=== PATIENT | male | born 1990 | race Caucasian/White ===

== ENCOUNTER 2019-07-15 11:49 | Emergency (ER) | payer BC, OTHER ==
[2019-07-15 11:58] VITALS: BMI 33.5
--- NOTE | 2019-07-15 12:13 | PDOC ---
History of Present Illness - General History Source: Patient Exam Limitations: No Limitations - History of Present Illness Initial Comments: 07/15/19 12:13 Luis Armando Ruvalcaba is a 28M with PMH meningitis, asthma, small bladder, presenting with constipation, urinary retention, and testicular pain. Has had constipation for the last 4 days, tried taking apple cider vinegar, milk of magnesia, has a BM today in ED waiting room and noticed bloody stools when wiping. Today also had testicular pain and suprapubic pain associated with urinary retention for 3 hours [employer], says he was diagnosed with a small bladder by urologist some years ago, normally goes to urinate hourly, not being able to urinate for a few hours is abnormal and causing some pain and nausea. Also has some lower back pain, has history of L4-L5 pinched nerve per neurologist but only has back pain a few times a year and goes away with Advil, denies ever having urinary retention or leg weakness/numbness/tingling with this. Denies fever/chills, headache, chest pain, SOB, dizziness. Denies alcohol/tobacco/drug use. Denies any sexual activity in the last year, denies risk of STD, denies discharge from penis. No recent exercise or strenuous physical activity. <Hung Benitez - Last Filed: 07/15/19 19:31> <Isela Cleveland - Last Filed: 07/16/19 11:58> - General Chief Complaint: Constipation Stated Complaint: CONSTIPATION Time Seen by Provider: 07/15/19 12:12 Past History - Past Medical History Asthma: Yes COPD: No Disorders: Yes (hineman syndrome) Hypercholesterolemia: Yes - Psycho Social/Smoking Cessation Hx Smoking Status: No Smoking History: Never smoked Number of Cigarettes Smoked Daily: 0 <Hung Benitez - Last Filed: 07/15/19 19:31> <Isela Cleveland - Last Filed: 07/16/19 11:58> - Past Medical History Allergies/Adverse Reactions: Allergies Allergy/AdvReac Type Severity Reaction Status Date / Time fesoterodine fumarate Allergy Intermediate Swelling Verified 07/15/19 11:58 [From [facility]] Home Medications: Ambulatory Orders Fluticasone Prop 0.05% Nasal [Flonase -] 2 spray NS DAILY #1 spray.pump Review of Systems - Review of Systems Able to Perform ROS?: Yes Constitutional: No: Symptoms Reported HEENTM: No: Symptoms Reported Respiratory: No: Symptoms reported Cardiac (ROS): No: Symptoms Reported ABD/GI: Yes: Blood Streaked Bowels, Constipated, Nausea. No: Vomiting : Yes: Testicular Pain. No: Burning, Dysuria, Discharge, Frequency, Flank Pain, Hematuria Musculoskeletal: Yes: Back Pain. No: Muscle Pain, Muscle Weakness Integumentary: No: Symptoms Reported Neurological: No: Symptoms reported Endocrine: No: Symptoms Reported Hematologic/Lymphatic: No: Symptoms Reported All Other Systems: Reviewed and Negative <Hung Benitez - Last Filed: 07/15/19 19:31> *Physical Exam - Vital Signs Last Vital Signs Temp Pulse Resp BP Pulse Ox 97.5 F L 72 18 147/84 99 07/15/19 11:56 07/15/19 11:56 07/15/19 11:56 07/15/19 11:56 07/15/19 11:56 - Physical Exam General Appearance: Yes: Nourished, Appropriately Dressed. No: Apparent Distress HEENT: positive: EOMI, ROBERTA, Normal Voice, Symmetrical, Pharynx Normal. negative: Scleral Icterus (R), Scleral Icterus (L) Neck: positive: Trachea midline, Normal Thyroid, Rigid, Supple. negative: Tender, Lymphadenopathy (R), Lymphadenopathy (L) Respiratory/Chest: positive: Lungs Clear, Normal Breath Sounds. negative: Chest Tender, Respiratory Distress, Accessory Muscle Use, Crackles, Rales, Rhonchi, Stridor, Wheezing Cardiovascular: positive: Regular Rhythm, Regular Rate. negative: Murmur Gastrointestinal/Abdominal: positive: Normal Bowel Sounds, Flat, Soft. negative : Tender, Organomegaly, Pulsatile Mass, Guarding, Rebound Male Genitalia: positive: normal genitalia, normal prostate. negative: discharge, testicular tenderness, testicular mass, hernia, CVAT, hematuria Musculoskeletal: positive: Normal Inspection. negative: CVA Tenderness, Decreased Range of Motion, Vertebral Tenderness Extremity: positive: Normal Capillary Refill, Normal Inspection, Normal Range of Motion, Pelvis Stable. negative: Tender Integumentary: positive: Normal Color, Dry, Warm Neurologic: positive: Fully Oriented, Alert, Normal Mood/Affect, Normal Response , Motor Strength 5/5 <Hung Benitez - Last Filed: 07/15/19 19:31> - Vital Signs Last Vital Signs Temp Pulse Resp BP Pulse Ox 98.7 F 64 17 133/79 98 07/15/19 20:01 07/15/19 20:01 07/15/19 20:01 07/15/19 20:01 07/15/19 20:01 <Isela Cleveland - Last Filed: 07/16/19 11:58> ED Treatment Course - LABORATORY CBC & Chemistry Diagram: 07/15/19 14:00 07/15/19 14:00 <Hung Benitez - Last Filed: 07/15/19 19:31> - LABORATORY CBC & Chemistry Diagram: 07/15/19 14:00 07/15/19 14:00 - ADDITIONAL ORDERS Additional order review: 07/15/19 12:57 Urine Culture - Final Urine - Urine Clean Catch NO GROWTH OBTAINED 07/15/19 14:00 RBC 4.75 MCV 82.6 MCHC 34.2 RDW 14.4 MPV 8.3 - RADIOLOGY Radiology Studies Ordered: Category Date Time Status SCROTUM AND CONTENTS US [US] Stat Ultrasound 07/15/19 14:51 Completed <Isela Cleveland - Last Filed: 07/16/19 11:58> Medical Decision Making - Medical Decision Making 07/15/19 12:13 Luis Armando Ruvalcaba is a 28M with PMH meningitis, asthma, small bladder, presenting with constipation, urinary retention, and testicular pain. Patient presents with suprapubic pain, testicular pain, and urinary retention concerning for urinary disease, including renal stones vs. torsion vs. prostatitis/STI. Getting CBC, CMP, UA/UC, and POCUS of bladder to evaluate for urinary causes. If UA shows evidence of blood, low threshold to get CT spiral. No notable CVA tenderness, able to urinate while in ED, has ~200CC PVR on POCUS , no obstructions noted. Bloody stools concerning for strain vs. hemorrhoids vs. GI bleed, patient low risk for active GI bleed, no evidence of blood on exam, notable tenderness to digital exam consistent with internal hemorrhoids, sending FOBT. Spine non-tender, able to ambulate, low risk of spinal pathology. 07/15/19 18:48 Labs notable for: - WBC 15 - UA clean Unclear etiology for WBC elevation. Concern high initially for epididymitis vs. orchitis given testicular pain. Scrotal US performed, no evidence of infection or torsion. Discussed results with patient, shared decision making. Given WBC elevation and abdominal pain, possible appendicitis. Patient is afebrile and feeling well, in no acute distress, no evidence of UTI. Offered CT scan abdomen for evaluation of appendicitis vs. discharge home with f /u, patient would like CT scan. Ordered CT abd/pel with IV contrast. 07/15/19 19:31 CT scan shows no evidence of appendicitis, but notable large amount of stool in bowels. Stable to be discharged home with bowel recommendations including Miralax and Dulcolax for constipation. Patient having normal BM in ED and able to void. <Hung Benitez - Last Filed: 07/15/19 19:31> Discharge - Discharge Information Problems reviewed: Yes - Admission No <Hung Benitez - Last Filed: 07/15/19 19:31> <Isela Cleveland - Last Filed: 07/16/19 11:58> - Discharge Information Clinical Impression/Diagnosis: Abdominal pain Qualifiers: Abdominal location: lower abdomen, unspecified Qualified Code(s): R10.30 - Lower abdominal pain, unspecified Condition: Stable Disposition: HOME - Follow up/Referral Referrals: Brian Cruz MD [Primary Care Provider] - - Patient Discharge Instructions Patient Printed Discharge Instructions: DI for Constipation Additional Instructions: Today you were evaluated for constipation, inability to urinate, and bloody stools. We have examined you and did not find evidence of bleeding hemorrhoids, testicular torsion, pelvic infections, or any other concerning findings. Your urine results do not show evidence of infection or blood concerning for a kidney stone. Your blood labs do not show evidence of infection, anemia, or electrolyte abnormalities. Your ultrasound shows your bladder is full of urine, but does not appear obstructed, and that you do not have any scrotal infection or torsion. Your CT scan shows no appendicitis, but you are very constipated. Your urinary retention was likely caused by constipation putting pressure on your bladder, preventing you from being able to urinate as much, and is not being caused by a serious or life-threatening disease. Please remember to take stool softeners such as Miralax or Dulcolax, stay hydrated, and eat foods high in fiber to prevent constipation. Please see your primary doctor in the next 3 days for further care. If you experience weakness in your legs, are unable to urinate for over 10 hours, have more bloody stools, become weak or dizzy, have discharge from your penis, have fevers, or have any other new or concerning symptoms, please return to the emergency room for further care. - Post Discharge Activity Work/Back to School Note: Back to Work
[2019-07-15 13:31] LABS: URINE APPEARANCE CLEAR; URINE BILIRUBIN NEGATIVE (NEGATIVE); URINE COLOR YELLOW; URINE GLUCOSE (UA) NEGATIVE (NEGATIVE); URINE KETONE NEGATIVE (NEGATIVE); URINE LEUK ESTERASE NEGATIVE (NEGATIVE); URINE NITRITE NEGATIVE (NEGATIVE); URINE PROTEIN NEGATIVE (NEGATIVE); URINE UROBILINOGEN 0.2 mg/dL (0.2-1.0)
--- NOTE | 2019-07-15 14:05 | PDOC ---
Documentation entered by Ninoska Whipple SCRIBE, acting as scribe for Isela Cleevland MD. Isela Cleveland MD: This documentation has been prepared by the Sarabjit gomez Joy, SCRIBE, under my direction and personally reviewed by me in its entirety. I confirm that the documentation accurately reflects all work, treatment, procedures, and medical decision making performed by me. 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 As per patient, he has had difficult bowel movement since last (07/19/19). Patient states that earlier today he was able to have a bowel movement while waiting in the ED; the patient states that there was blood in his stool. Patient endorses new onset of urinary retention, testicular pain, suprapubic tenderness, lower back pain, and nausea. has been taking stool softeners/laxatives and miralax for his constipation, made BM here Denies having retention with L-4 and L-5 pinched nerves phenomenon. Denies having recent sexual partner in the past year, denies intense physical activity, heavy lifting, trauma, fever, chills, chest pain, SOB, palpitation, dizziness, weakness, V, D, abdominal pain, leg swelling, No sick contacts or travel. No new changes in medications. denies sexual activity. Allergies: fesoterodine fumarate [from [facility]] Past Medical History: meningitis, asthma, hyperlipidemia Meds: as documented in EMR PMD: Dr. Brian Cruz 07/15/19 14:05 07/15/19 14:07 07/15/19 14:07 - Physicial Exam PE: 07/15/19 12:51 Focused Physical exam (resident attestation): NAD, well appearing, EOMI, PERRL, MMM, nl conjunctiva, anicteric; neck supple. lungs clear, RRR, abdomen soft +suprapubic TTP, Back nontender. ABBOTT x4, no focal neuro deficits. No peripheral edema. normal color for ethnicity, WWP. exam, with the resident: normal external genitalia, no lesions, normal testicular lie, no scrotal or testicular edema or tenderness. +cremaster reflex bilaterally. no hernia. 07/15/19 14:03 07/15/19 14:05 - Medical Decision Making 07/15/19 14:03 Vital Signs Temp Pulse Resp BP Pulse Ox 97.5 F L 72 18 147/84 99 07/15/19 11:56 07/15/19 11:56 07/15/19 11:56 07/15/19 11:56 07/15/19 11:56 Vital signs reviewed within normal limits. Differential diagnosis includes UTI , urinary retention, constipation, obstructive uropathy, testicular torsion/ hydrocele, epididymitis, orchitis Testicular exam is within normal limits so doubt testicular torsion, no scrotal tenderness. Pain has resolved there. Most of his symptoms are isolated to the suprapubic region, no rebound or guarding. No flank tenderness. No fevers or systemic findings. pt made BM here, normal, rectal exam, no hemorrhoids or bleeding, unremarkable. no e/o obstruction, not constipated.. Bladder ultrasound was done with 200ml, no pelvic free fluid. Patient able to void appropriately and we will check postvoid residual. after, 60cc, no e/o retention. wbc ct elevated 15K, Laboratory results otherwise unremarkable, normal creatinine, UA is preliminarily negative, no blood on the stool guaiac. testicular sono to eval for epididymitis/orchitis, torsion. reassess, pain controlled, no peritoneal findings. pt declines analgesia during ED visit shared decision making, given wbc ct and abdominal pain, pt elects for CT a/p s/o pending CT a/p, eval for intra abdominal etiology, atypical appy, infection. 07/15/19 15:31 07/16/19 11:57
[2019-07-15 14:25] LABS: HEMATOCRIT 39.2 % (35.4-49); HEMOGLOBIN 13.4 GM/dL (11.7-16.9); MCH 28.3 pg (25.7-33.7); MCHC 34.2 g/dl (32.0-35.9); MEAN CELL VOLUME 82.6 fl (80-96); MEAN PLT VOLUME 8.3 fl (7.5-11.1); PLATELET COUNT 282 K/MM3 (134-434); RBC 4.75 M/mm3 (4.00-5.60); RDW 14.4 % (11.9-15.9); WHITE BLOOD COUNT 15.2 K/mm3 (4.0-10.0)
[2019-07-15 14:58] LABS: ALBUMIN 4.2 g/dl (3.4-5.0); BILIRUBIN,TOTAL 0.4 mg/dL (0.2-1); BLOOD UREA NITROGEN 7.9 mg/dL (7-18); CALCIUM 9.5 mg/dL (8.5-10.1); CREATININE 0.8 mg/dL (0.55-1.3); POTASSIUM 3.9 mmol/L (3.5-5.1); TOT PROT 7.6 g/dl (6.4-8.2)
[2019-07-15 20:02] VITALS: BP 133/79; PULSE 64; TEMP 98.7
== END 2019-07-15 20:04 | disposition home or self-care (01) ==
LOC: JER 11:49
DX: K59.00 Constipation, unspecified (principal); J45.909 Unspecified asthma, uncomplicated; G03.9 Meningitis, unspecified; R33.9 Retention of urine, unspecified; N50.819 Testicular pain, unspecified; R10.30 Lower abdominal pain, unspecified
CPT/HCPCS: 36415; 74177-TC; 76857; 76870-TC; 80053; 81003; 82272; 85027; 87086; 99283-25; Q9967

== ENCOUNTER 2020-03-26 23:21 | Emergency (ER) | payer OTHER ==
--- NOTE | 2020-03-26 23:29 | PDOC ---
Attending Attestation - Resident Resident Name: Valeriano Vincent - ED Attending Attestation I have performed the following: I have examined & evaluated the patient, The case was reviewed & discussed with the resident, I agree w/resident's findings & plan - HPI HPI: 03/27/20 02:14 see resident hpi - Physicial Exam PE: 03/27/20 02:14 see resident exam - Medical Decision Making 03/27/20 02:14 29-year-old male with right flank pain radiating into the right groin and testicle Urinalysis significant for hematuria, microscopic CT scan significant for right mid to distal ureteral stone IV fluid normal saline 1 L bolus, IV Tylenol and Zofran given on arrival Plan for Toradol administration, reevaluation and admission if needed for pain management Discharge - Discharge Information Problems reviewed: Yes Clinical Impression/Diagnosis: Ureterolithiasis Condition: Fair - Follow up/Referral - Patient Discharge Instructions - Post Discharge Activity
[2020-03-26 23:33] VITALS: BMI 33.7
--- NOTE | 2020-03-26 23:36 | PDOC ---
History of Present Illness - General Chief Complaint: Pain, Acute Stated Complaint: BACK PAIN Time Seen by Provider: 03/26/20 23:25 - History of Present Illness Initial Comments: 03/26/20 23:25 29 M with cami JOHNSON from home for acute left plank pain. Pain started out 4 hours ago, located on the left plank side, radiate to the testicles, hx of prior UTI last month. Denies F/C/ N/V/D. PMHX: as in HPI PSHX: eye surgery Meds: ventilin Allergies: none Tob: none Etoh: none Rec drugs: none PCP: ANDRZEJ GENERAL/CONSTITUTIONAL: No fever or chills. No weakness. HEAD, EYES, EARS, NOSE AND THROAT: No change in vision. No ear pain or discharge. No sore throat. CARDIOVASCULAR: No chest pain or shortness of breath RESPIRATORY: No cough, wheezing, or hemoptysis. GASTROINTESTINAL: No nausea, vomiting, diarrhea or constipation. GENITOURINARY: No dysuria, frequency, or change in urination. MUSCULOSKELETAL: No joint or muscle swelling or pain. No neck or back pain. SKIN: No rash NEUROLOGIC: No headache, vertigo, loss of consciousness, or change in strength/sensation. ENDOCRINE: No increased thirst. No abnormal weight change HEMATOLOGIC/LYMPHATIC: No anemia, easy bleeding, or history of blood clots. ALLERGIC/IMMUNOLOGIC: No hives or skin allergy. PE GENERAL: Awake, alert, and fully oriented, in no acute distress HEAD: No signs of trauma, normocephalic, atraumatic EYES: PERRLA, EOMI, sclera anicteric, conjunctiva clear ENT: Auricles normal inspection, hearing grossly normal, nares patent, oropharynx clear without exudates. Moist mucosa NECK: Normal ROM, supple, no lymphadenopathy, JVD, or masses LUNGS: No distress, speaks full sentences, clear to auscultation bilaterally HEART: Regular rate and rhythm, normal S1 and S2, no murmurs, rubs or gallops, peripheral pulses normal and equal bilaterally. ABDOMEN: Soft, nontender, normoactive bowel sounds. No guarding, no rebound. No masses EXTREMITIES : Normal inspection, Normal range of motion, no edema. No clubbing or cyanosis. NEUROLOGICAL: Cranial nerves II through XII grossly intact. Normal speech, normal gait, no focal sensorimotor deficits SKIN: Warm, Dry, normal turgor, no rashes or lesions noted Past History - Medical History Allergies/Adverse Reactions: Allergies Allergy/AdvReac Type Severity Reaction Status Date / Time fesoterodine fumarate Allergy Intermediate Swelling Verified 03/26/20 23:26 [From [facility]] Home Medications: Ambulatory Orders Fluticasone Prop 0.05% Nasal [Flonase -] 2 spray NS DAILY #1 spray.pump 01/08/14 Asthma: Yes COPD: No Disorders: Yes (hineman syndrome) Hypercholesterolemia: Yes - Psycho-Social/Smoking History Smoking Status: No Smoking History: Never smoked Number of Cigarettes Smoked Daily: 0 ED Treatment Course - LABORATORY CBC & Chemistry Diagram: 03/27/20 01:00 03/27/20 01:00 Discharge - Discharge Information Problems reviewed: Yes Clinical Impression/Diagnosis: Ureterolithiasis Condition: Fair Disposition: HOME - Follow up/Referral Referrals: Pamela Chacko MD [Staff Physician] - Brian Cruz MD [Primary Care Provider] - - Patient Discharge Instructions Patient Printed Discharge Instructions: Kidney Stones -- Adult Additional Instructions: You were seen in the ER today for flank and urine pain. The results of your labs and imaging today showed a 4 mm kidney stone. Please follow-up with your primary care doctor and urology within 1-2 days to discuss your visit and make sure your symptoms have improved. Please return to the ER if you have any worsening pain, development of fevers or chills, loss of consciousness, inability to tolerate food or fluids, or any other concerns. You can take tylenol or motrin every 4-6 hours as needed for pain. - Post Discharge Activity
[2020-03-26] MEDS ORDERED: SODIUM CHLORIDE 0.9% 500 ML INFUS.BAG IV ONE (23:51)
[2020-03-26] MEDS ORDERED: ONDANSETRON 4 MG/2 ML VIAL IVPUSH ONE (23:51)
[2020-03-26] MEDS ORDERED: ACETAMINOPHEN 1000 MG/100 ML VIAL (NON FORMULARY) IVPB ONE (23:51)
[2020-03-27] MEDS ORDERED: ACETAMINOPHEN INJECTION 100 ML IVPB ONE (01:09)
[2020-03-27 01:18] LABS: BASO % 0.5 % (0-2.0); EOS % 0.1 % (0-4.5); HEMATOCRIT 40.2 % (35.4-49); HEMOGLOBIN 13.7 GM/dL (11.7-16.9); LYMPH % 7.9 % (8-40); MCH 27.9 pg (25.7-33.7); MCHC 34.1 g/dl (32.0-35.9); MEAN CELL VOLUME 81.8 fl (80-96); MEAN PLT VOLUME 8.4 fl (7.5-11.1); MONO % 2.8 % (3.8-10.2); NEUT % 88.7 % (42.8-82.8); PLATELET COUNT 284 K/MM3 (134-434); RBC 4.91 M/mm3 (4.00-5.60); RDW 14.2 % (11.9-15.9)
[2020-03-27 01:28] LABS: INR 1.05 (0.83-1.09); PROTHROMBIN TIME (PATIENT) 12.4 SEC (9.7-13.0)
[2020-03-27 01:30] LABS: EPI CELLS 3 /uL (0-25.1); HYALINE CASTS 0 /uL (0-3.1); URINE APPEARANCE TURBID; URINE BACTERIA 5 /uL (0-1359); URINE BILIRUBIN NEGATIVE (NEGATIVE); URINE COLOR YELLOW; URINE GLUCOSE (UA) NEGATIVE (NEGATIVE); URINE KETONE NEGATIVE (NEGATIVE); URINE LEUK ESTERASE TRACE (NEGATIVE); URINE NITRITE NEGATIVE (NEGATIVE); URINE PROTEIN NEGATIVE (NEGATIVE); URINE RBC 1107 /uL (0-23.9); URINE UROBILINOGEN 0.2 mg/dL (0.2-1.0); URINE WBC 10 /uL (0-25.8)
[2020-03-27 01:44] LABS: ALBUMIN 4.6 g/dl (3.4-5.0); BILIRUBIN,TOTAL 0.4 mg/dL (0.2-1); BLOOD UREA NITROGEN 12.3 mg/dL (7-18); CALCIUM 9.5 mg/dL (8.5-10.1); CREATININE 1.2 mg/dL (0.55-1.3); POTASSIUM 3.8 mmol/L (3.5-5.1); TOT PROT 7.9 g/dl (6.4-8.2)
[2020-03-27 03:35] VITALS: BP 135/77; PULSE 76; TEMP 98.7
[2020-03-27] MEDS ORDERED: KETOROLAC TROMETHAMINE 15 MG/ML VIAL IVPUSH ONE (03:45)
[2020-03-27] MEDS ORDERED: KETOROLAC TROMETHAMINE 15 MG/ML VIAL ONE (03:50)
== END 2020-03-27 05:00 | disposition home or self-care (01) ==
LOC: JER 23:21
PROC: 3E033NZ Introduction of Analgesics, Hypnotics, Sedatives into Peripheral Vein, Percutaneous Approach (ICD-10-PCS; principal; 2020-03-26)
PROC: 3E033GC Introduction of Other Therapeutic Substance into Peripheral Vein, Percutaneous Approach (ICD-10-PCS; 2020-03-26)
DX: N20.1 Calculus of ureter (principal)
CPT/HCPCS: 36415; 74176-TC; 80053; 81003; 85025; 85610; 87086; 99285-25; J0131

== ENCOUNTER 2021-11-15 05:29 | Emergency (ER) | payer OTHER ==
[2021-11-15 05:46] VITALS: BP 155/76; PULSE 102; TEMP 98.5; BMI 33.3
[2021-11-15] MEDS ORDERED: DEXAMETHASONE 4 MG TABLET (FP) PO ONE (05:51)
[2021-11-15] MEDS ORDERED: DEXAMETHASONE 4 MG TABLET (FP) ONE (05:56)
[2021-11-15] MEDS ORDERED: ALBUTEROL SO4 2.5/IPRATROPIUM 0.5 INH SOL 3 ML VIAL.NEB. NEB SCH (06:00)
== END 2021-11-15 07:03 | disposition home or self-care (01) ==
LOC: JER 05:29
PROC: 3E0F7GC Introduction of Other Therapeutic Substance into Respiratory Tract, Via Natural or Artificial Opening (ICD-10-PCS; principal; 2021-11-15)
DX: J11.1 Influenza due to unidentified influenza virus with other respiratory manifestations (principal)
CPT/HCPCS: 99283-25

== ENCOUNTER 2022-12-23 13:40 | Observation (INO) | payer OTHER ==
[2022-12-23] MEDS ORDERED: SODIUM CHLORIDE 1,000 ML IV SCH (14:00)
[2022-12-23 14:47] LABS: BASO % 0.6 % (0-2.0); HEMATOCRIT 39.2 % (35.4-49); LYMPH % 7.8 % (8-40); MCH 28.4 pg (25.7-33.7); MCHC 35.7 g/dl (32.0-35.9); MEAN CELL VOLUME 79.5 fl (80-96); MEAN PLT VOLUME 8.4 fl (7.5-11.1); MONO % 1.3 % (3.8-10.2); NEUT % 90.3 % (42.8-82.8); PLATELET COUNT 343 10^3/uL (134-434); RBC 4.93 M/mm3 (4.00-5.60)
[2022-12-23 14:59] LABS: INR 1.08 (0.83-1.09); PROTHROMBIN TIME (PATIENT) 12.5 SEC (9.7-13.0)
[2022-12-23 15:02] LABS: ACTIVATED PTT 33.2 SECONDS (25.2-36.5)
[2022-12-23 15:06] LABS: POTASSIUM 3.8 mmol/L (3.5-5.1)
[2022-12-23 15:08] LABS: ALBUMIN 4.4 g/dl (3.4-5.0)
[2022-12-23 15:09] LABS: BLOOD UREA NITROGEN 15.3 mg/dL (7-18)
[2022-12-23 15:11] LABS: CREATININE 0.9 mg/dL (0.55-1.3)
[2022-12-23 15:13] LABS: TOT PROT 8.2 g/dl (6.4-8.2)
[2022-12-23 15:14] LABS: BILIRUBIN,TOTAL 0.6 mg/dL (0.2-1)
[2022-12-23] MEDS ORDERED: valACYclovir HCL 1000 MG TABLET PO ONE (17:01)
[2022-12-23] MEDS ORDERED: ACETAMINOPHEN 1000 MG/100 ML BAG IVPB ONE (17:01)
[2022-12-23] MEDS ORDERED: predniSONE 20 MG TABLET (UD) PO ONE (17:02)
[2022-12-23] MEDS ORDERED: predniSONE 20 MG TABLET (UD) ONE (17:27)
[2022-12-23] MEDS ORDERED: valACYclovir HCL 500 MG TABLET (FP) ONE (17:28)
[2022-12-23] MEDS ORDERED: ACETAMINOPHEN INJECTION 100 ML IVPB ONE (17:28)
[2022-12-23] MEDS ORDERED: ACETAMINOPHEN 1000 MG/100 ML BAG IVPB PRN (22:18)
[2022-12-23] MEDS ORDERED: ASPIRIN 81 MG CHEWABLE TABLETS PO ONE (22:19)
[2022-12-23] MEDS: DEXTROSE 5%-NORMAL SALINE 1,000 ML IV SCH (22:27)
[2022-12-23] MEDS ORDERED: ASPIRIN 81 MG CHEWABLE TABLETS ONE (22:32)
[2022-12-24 00:22] LABS: URINE APPEARANCE CLEAR; URINE BILIRUBIN NEGATIVE (NEGATIVE); URINE COLOR YELLOW; URINE GLUCOSE (UA) NEGATIVE (NEGATIVE); URINE KETONE NEGATIVE (NEGATIVE); URINE LEUK ESTERASE NEGATIVE (NEGATIVE); URINE NITRITE NEGATIVE (NEGATIVE); URINE PROTEIN TRACE (NEGATIVE); URINE UROBILINOGEN 0.2 mg/dL (0.2-1.0)
[2022-12-24 03:26] VITALS: BMI 34.7
[2022-12-24 08:04] LABS: BASO % 0.3 % (0-2.0); HEMATOCRIT 37.4 % (35.4-49); HEMOGLOBIN 12.8 GM/dL (11.7-16.9); LYMPH % 13.4 % (8-40); MCH 27.2 pg (25.7-33.7); MCHC 34.1 g/dl (32.0-35.9); MEAN CELL VOLUME 79.7 fl (80-96); MEAN PLT VOLUME 8.1 fl (7.5-11.1); MONO % 3.8 % (3.8-10.2); NEUT % 82.5 % (42.8-82.8); PLATELET COUNT 307 10^3/uL (134-434); WHITE BLOOD COUNT 12.2 K/mm3 (4.0-10.0)
[2022-12-24 08:25] LABS: CHLORIDE 105 mmol/L (98-107); SODIUM 140 mmol/L (136-145)
[2022-12-24 08:29] LABS: BLOOD UREA NITROGEN 13.5 mg/dL (7-18); CALCIUM 9.3 mg/dL (8.5-10.1)
[2022-12-24 08:30] LABS: ANION GAP 5 MMOL/L (8-16); CO2 30 mmol/L (21-32); CREATININE 0.8 mg/dL (0.55-1.3); GLUCOSE,RANDOM 78 mg/dL (74-106)
[2022-12-24 08:31] LABS: MAGNESIUM 2.2 mg/dL (1.8-2.4)
[2022-12-24 08:33] LABS: PHOSPHOROUS 4.7 mg/dL (2.5-4.9)
[2022-12-24] MEDS: HEPARIN NA (PORCINE) 5,000 UNITS/ML 1ML VIAL SQ SCH (13:34)
[2022-12-24] MEDS: DEXTROSE 5%-NORMAL SALINE 1,000 ML IV SCH (23:00)
[2022-12-25] MEDS: HEPARIN NA (PORCINE) 5,000 UNITS/ML 1ML VIAL SQ SCH ×4 (00:13→21:15)
[2022-12-25] MEDS ORDERED: ACETAMINOPHEN 500 MG TABLET (FP) PO PRN (09:35)
[2022-12-25] MEDS: BUDESONIDE/FORMETEROL FUMARATE 80/4.5 mcg INHALER IH SCH ×2 (09:56→21:16)
[2022-12-25] MEDS: predniSONE 20 MG TABLET (UD) PO SCH (09:58)
[2022-12-25] MEDS: valACYclovir HCL 500 MG TABLET (FP) PO SCH ×2 (13:16→21:16)
[2022-12-25 14:57] VITALS: RESP 18
[2022-12-25] MEDS ORDERED: MONTELUKAST NA 5 MG TAB.CHEW PO SCH ×2 (22:00)
[2022-12-25] MEDS: DEXTROSE 5%-NORMAL SALINE 1,000 ML IV SCH (23:00)
[2022-12-26] MEDS: HEPARIN NA (PORCINE) 5,000 UNITS/ML 1ML VIAL SQ SCH (06:36)
[2022-12-26] MEDS: valACYclovir HCL 500 MG TABLET (FP) PO SCH (06:38)
[2022-12-26 07:33] LABS: POTASSIUM 3.2 mmol/L (3.5-5.1)
[2022-12-26 07:37] LABS: BLOOD UREA NITROGEN 9.6 mg/dL (7-18); CALCIUM 8.8 mg/dL (8.5-10.1)
[2022-12-26 07:41] LABS: CREATININE 0.8 mg/dL (0.55-1.3)
[2022-12-26] MEDS: predniSONE 20 MG TABLET (UD) PO SCH (10:10)
[2022-12-26] MEDS: BUDESONIDE/FORMETEROL FUMARATE 80/4.5 mcg INHALER IH SCH (10:11)
[2022-12-26 11:26] VITALS: BP 158/90; PULSE 54; TEMP 98.2
[2022-12-26 11:40] LABS: HIV INTERPRETATION NEGATIVE (NEGATIVE)
[2022-12-26] MEDS ORDERED: POTASSIUM CHLORIDE TABS 20 MEQ TABLET.ER (FP) PO ONE (12:31)
== END 2022-12-26 13:50 | disposition home or self-care (01) ==
LOC: JER 13:40 → JERBED 17:30 → J4W 12-24 03:00
PROVIDERS: ADMIT Internal Medicine; ATTEND Family Medicine
PROC: 3E033NZ Introduction of Analgesics, Hypnotics, Sedatives into Peripheral Vein, Percutaneous Approach (ICD-10-PCS; principal; 2022-12-23)
PROC: 3E033GC Introduction of Other Therapeutic Substance into Peripheral Vein, Percutaneous Approach (ICD-10-PCS; 2022-12-23)
PROC: 3E023GC Introduction of Other Therapeutic Substance into Muscle, Percutaneous Approach (ICD-10-PCS; 2022-12-23)
PROC: 3E0337Z Introduction of Electrolytic and Water Balance Substance into Peripheral Vein, Percutaneous Approach (ICD-10-PCS; 2022-12-23)
DX: R29.810 Facial weakness (principal); R53.1 Weakness; R13.10 Dysphagia, unspecified; R20.2 Paresthesia of skin; Z88.8 Allergy status to other drugs, medicaments and biological substances; J45.909 Unspecified asthma, uncomplicated
CPT/HCPCS: 0241U-QW; 36415; 70450-TC; 70496-TC; 70498-TC; 70545-TC; 70552-TC; 71045-TC-FY; 80048; 80053; 80061; 81003; 82550; 83036; 83735; 84100; 84443; 84484; 85025; 85610; 85651; 85730; 86140; 86618; 86850; 86900; 86901; 87389; 93005; 93010; 96361; 96365; 96372; 96374; 99285-25; G0378; J1644